=== PATIENT | male | born 1980 | race Caucasian/White ===

== ENCOUNTER 2023-09-13 00:35 | Emergency (ER) | payer SELFPAY ==
[~2023-09-13] VITALS: Ht 167.6 cm; Wt 59.0 kg
[2023-09-13 00:35] VITALS: BP 156/107; PULSE 109; RESP 12; TEMP 97; O2SAT 97
[2023-09-13 01:41] VITALS: BP 156/107; PULSE 99; RESP 18; TEMP 97; O2SAT 99
== END 2023-09-13 01:41 | disposition home or self-care (01) ==
LOC: MED 00:35
DX: Z00.8 Encounter for other general examination (principal); T40.411A Poisoning by fentanyl or fentanyl analogs, accidental (unintentional), initial encounter; Z79.899 Other long term (current) drug therapy; Y92.89 Other specified places as the place of occurrence of the external cause
CPT/HCPCS: 99283